=== PATIENT | female | born 1960 | race Caucasian/White ===

== ENCOUNTER 2022-12-25 13:15 | Outpatient (OUT) | payer OTHER, SELFPAY ==
[2022-12-25 13:40] LABS: Estimated GFR (African America >60 (>=60); Estimated GFR (Non-African Ame >60 (>=60)
--- NOTE | 2022-12-25 14:43 | CT_ITS ---
[address] [address] Patient Name: SHANIA JAQUEZ MRN: [id number] date: 1960 Sex: F Assigned Patient Location: LAB Current Patient Location: LAB Accession/Order Number: [id number] Exam Date: 12/25/2022 14:25 Report Date: 12/25/2022 17:37 At the request of: CHARLENE KHAN Procedure: CT angio chest EXAM: CT angio chest HISTORY: Hemoptysis R0.42, R93.89 COMPARISON: Chest radiograph from 10/20/2022 TECHNIQUE: CT chest with intravenous contrast was performed with timing for the evaluation for pulmonary arteries. Multiplanar reformats were performed. MIP (maximum intensity projection) images or 3D post processing was performed. Dose reduction techniques were achieved by using automated exposure control and/or adjustment of mA and/or kV according to patient size and/or use of iterative reconstruction technique. FINDINGS: Lungs: There is a large right pleural effusion with right lower, middle and upper lobe atelectasis and/or consolidation. 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 There is a small left pleural effusion with linear atelectasis of the left upper lobe and lingula. There is bilateral centrilobular emphysema. There is a masslike lesion measuring up to 7.1 x 7.2 cm extending from the right paratracheal to the right perihilar and subcarinal region, likely representing lung mass and conglomerated lymphadenopathy. No suspicious pulmonary nodule is seen in the left lung. Airways: Normal. Mediastinum: There is a 6.1 x 4.8 cm conglomerated lymph nodes which is inseparable from the right perihilar lung mass. There are also bilateral supraclavicular, bilateral perivascular lymph nodes measuring up to 2.1 cm. Aorta: No aneurysm. Cardiac: Normal size. No pericardial effusion. Pulmonary vasculature: Diagnostic opacification of pulmonary arteries without evidence of pulmonary embolus. Normal morphology. Encasement and narrowing of the right main pulmonary artery with severe narrowing of the segmental branch of the right upper lobe due to lymphadenopathy and lung mass. 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 There is severe narrowing/occlusion of the right upper lobe pulmonary veins up to the insertion into the left atrium. There is severe narrowing of the right lower lobe pulmonary veins but patent at the insertion to the left atrium. Bones: No acute bony abnormality. No aggressive bone lesion. Axilla: No adenopathy. Thyroid gland: No abnormality demonstrated on provided imaging. Soft tissues: Bilateral breast implant. Upper abdomen: Unremarkable. Additional findings: None. IMPRESSION: No acute pulmonary embolism. 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 Multiple mediastinal lymphadenopathy as described above. Large right pleural effusion with right lower, middle and upper lobe atelectasis and/or consolidation. 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 Small left pleural effusion with linear atelectasis of the left upper lobe and lingula. Electronically authenticated by: SONYA CHIANG Date: 12/25/2022 17:37
== END 2022-12-25 13:16 ==
LOC: LAB 13:20
PROVIDERS: PCP Family Medicine; Visit Provider Internal Medicine
DX: R04.2 Hemoptysis (principal); R93.89 Abnormal findings on diagnostic imaging of other specified body structures; R91.8 Other nonspecific abnormal finding of lung field; R59.0 Localized enlarged lymph nodes; J90 Pleural effusion, not elsewhere classified
CPT/HCPCS: 36415; 71275; 82565; Q9967

== ENCOUNTER 2022-12-26 11:34 | Outpatient (OUT) | payer OTHER, SELFPAY ==
--- NOTE | 2022-12-26 12:14 | XR_ITS ---
[address] [address] Patient Name: SHANIA JAQUEZ MRN: [id number] date: 1960 Sex: F Assigned Patient Location: [place] Current Patient Location: [place] Accession/Order Number: [id number] Exam Date: 12/26/2022 12:24 Report Date: 12/26/2022 12:44 At the request of: CHARLENE KHAN Procedure: XR chest 1V EXAMINATION: XR chest 1V HISTORY: post thoracentesis COMPARISON: CTA chest 12/25/2022, XR chest 10/20/2022 FINDINGS: LUNGS: Complete opacification of the lower one third of the right hemithorax. Small amount of fluid within the right minor fissure. Left lung is expanded and grossly clear; opacity over the lung bases suspected to be anterior soft tissue artifact. VASCULATURE: No increased pulmonary vasculature. PLEURA: No pneumothorax, effusion, or pleural thickening. CARDIAC: Cannot assess. MEDIASTINUM: No visible mass or adenopathy. BONES: No fracture or visible bone lesion. OTHER: Negative. IMPRESSION: 1. Opacification of lower one third of right hemithorax; residual fluid versus atelectasis. Follow-up to document clearing is recommended. 2. No pneumothorax. Electronically authenticated by: DARRELL HARPER Date: 12/26/2022 12:44
--- NOTE | 2022-12-26 12:30 | PC.NURSE ---
Pt arrived per to complete thoracentesis, completed without difficulty and drained 850ml. Sent specimin to lab, CXR completed stat. Post procedure visited and departed with pt and family to his office. Time out was completed during procedure at 1157. Post procedure HR 97 Spo2 99 room air.
--- NOTE | 2022-12-26 12:55 | W.PM.PROCNOT ---
Date of procedure: 12/26/22 Pre-op diagnosis: Right pleural effusion Post-op diagnosis: same Procedure: Procedure: Ultrasound-guided diagnostic & therapeutic right-sided thoracentesis Summary: Informed consent was obtained after risks, benefits, and alternatives were discussed with the patient. Time out was initiated to confirm the correct patient, site, and procedure with all present voicing in the affirmative. The patient was placed in the seated position in the hospital bed. Ultrasound was utilized to identify the hemidiaphragm and pleural fluid on the right. A very large right pleural effusion was seen. An appropriate drainage site was marked via pen, based on anatomical landmarks and the ultrasound findings. Chloraprep was used to cleanse the lower right hemithorax. Sterile drapes were applied. Lidocaine 1% 10mL was injected, first as superficial skin wheal, and then using aspiration technique, advanced over the superior aspect of the lower rib subcutaneously at the periosteum and then parietal pleura. Easy return of mcgrath pleural fluid was aspirated. Next, a small incision was made to the anesthetized area with the blade provided in the prepackaged thoracentesis kit. Hemostasis was achieved. A kcqrhdsz-ueyk-echwng apparatus was advanced as a unit over the superior aspect of the lower rib into the pleural space with great care to prevent further progression of the needle into the pleural cavity. The needle was then retracted completely and discarded. A vacuum collection system was attached to the catheter and pleural fluid was collected for analysis. A total of 800mL of pleural fluid was removed. The procedure was terminated due to the patient complaining of a funny feeling in her chest. The catheter was then removed during an expiratory breath-hold maneuver. The patient tolerated the procedure well. A post-procedural portable chest x-ray was ordered to assess adequacy of pleural fluid drainage and to evaluate for iatrogenic pneumothorax. The report shows no pneumothorax, but a large amount of right pleural fluid still remains. Anesthesia: Local (Lidocaine 1%, 10mL subcutaneously) Surgeon: Ranjith Dempsey Estimated blood loss (mL): 0
[2022-12-27 11:09] LABS: Amylase, Body Fluid 56 U/L (.); Glucose, Body Fluid 106 mg/dL (.); Protein, Body Fluid 4.7 g/dL (.); Triglycerides, Fluid 30 mg/dL (Not Estab.)
[2022-12-27 15:08] LABS: Clarity, Serous Clear (Clear); Color, Serous Yellow (.); Eosinophils, Serous 0 % (Not Estab.); Lining Cells, Serous 4 % (Not Estab.); Lymphocytes, Serous 70 % (Not Estab.); Macrophages, Serous 20 % (Not Estab.); Neut, Serous 6 % (0-24); Nucleated Cells, Serous 1724 /mm3 (0-499); RBC, Serous 2000 /uL (Not Estab.)
[2022-12-28 16:10] LABS: pH, Body Fluid 7.9 (Not Estab.)
== END 2022-12-26 12:30 ==
LOC: INF 11:36 → MS 11:38
PROVIDERS: PCP Family Medicine; Visit Provider Internal Medicine
DX: J90 Pleural effusion, not elsewhere classified (principal)
CPT/HCPCS: 32555; 36415; 71045; 82150; 82945; 83986; 84478; 87070; 88112; 88305; 88341; 88342; 89051

== ENCOUNTER 2022-12-26 15:09 | Outpatient (OUT) | payer OTHER, SELFPAY | END 2022-12-26 15:10 | disposition home or self-care (01) | PROVIDERS: PCP Family Medicine; Visit Provider Internal Medicine Hematology & Oncology | DX: C34.90 Malignant neoplasm of unspecified part of unspecified bronchus or lung (principal); D38.1 Neoplasm of uncertain behavior of trachea, bronchus and lung; R59.0 Localized enlarged lymph nodes; R06.00 Dyspnea, unspecified; J90 Pleural effusion, not elsewhere classified; D38.3 Neoplasm of uncertain behavior of mediastinum; R91.8 Other nonspecific abnormal finding of lung field | CPT/HCPCS: G0463 ==

== ENCOUNTER 2022-12-28 10:33 | Outpatient (OUT) | payer OTHER, SELFPAY ==
--- NOTE | 2022-12-28 10:38 | MR_ITS ---
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 TECHNIQUE: A variety of imaging planes and parameters were utilized for visualization of suspected pathology. Images were performed without and with Dotarem contrast. FINDINGS: CEREBRUM: No edema, hemorrhage, mass, acute infarction, or inappropriate atrophy. CEREBELLUM: No edema, hemorrhage, mass, acute infarction, or inappropriate atrophy. BRAINSTEM: No edema, hemorrhage, mass, acute infarction, or inappropriate atrophy. CSF SPACES: Ventricles, cisterns, and sulci are appropriate for age. No hydrocephalus, subarachnoid hemorrhage, or mass. SKULL: No mass or other significant visible lesion. SINUSES: Complete opacification of left maxillary sinus. ORBITS: Limited views are unremarkable. OTHER: 12 x 10 x 5 mm nonenhancing nodule versus proteinaceous cyst within subcutaneous fat of posterior right scalp near midline. IMPRESSION: 1. Within posterior right scalp subcutaneous fat is a 12 mm rounded lesion; nonspecific but favoring a sebaceous gland cyst or dermal inclusion cyst. Metastatic disease is felt much less likely. 2. Normal MRI appearance of the brain. No evidence of metastatic disease. 3. Left maxillary marked chronic sinusitis. Electronically authenticated by: DARRELL HARPER Date: 12/28/2022 16:29
== END 2022-12-28 10:34 ==
LOC: MRI 10:34
PROVIDERS: PCP Family Medicine; Visit Provider Internal Medicine Hematology & Oncology
DX: Z01.810 Encounter for preprocedural cardiovascular examination (principal); R91.8 Other nonspecific abnormal finding of lung field; D38.1 Neoplasm of uncertain behavior of trachea, bronchus and lung; C34.90 Malignant neoplasm of unspecified part of unspecified bronchus or lung; R59.0 Localized enlarged lymph nodes; R06.00 Dyspnea, unspecified; J90 Pleural effusion, not elsewhere classified; D38.3 Neoplasm of uncertain behavior of mediastinum; J32.0 Chronic maxillary sinusitis; L98.9 Disorder of the skin and subcutaneous tissue, unspecified
CPT/HCPCS: 70553; 93005; A9575

== ENCOUNTER 2022-12-28 14:28 | Outpatient (OUT) | payer OTHER, SELFPAY ==
--- NOTE | 2022-12-28 14:34 | ECG_ITS ---
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
== END 2022-12-28 14:29 ==
PROVIDERS: PCP Family Medicine
DX: Z01.810 Encounter for preprocedural cardiovascular examination (principal); R91.8 Other nonspecific abnormal finding of lung field
CPT/HCPCS: 93005

== ENCOUNTER 2023-01-01 10:44 | Outpatient (OUT) | payer OTHER, SELFPAY ==
--- NOTE | 2023-01-01 10:00 | NM_ITS ---
[address] [address] Patient Name: SHANIA JAQUEZ MRN: [id number] date: 1960 Sex: F [facility] Accession/Order Number: [id number] Exam Date: 01/01/2023 10:00 Report Date: 01/01/2023 21:32 At the request of: SYDNI ARRIOLA Procedure: [facility] bone scan whole body EXAMINATION: [facility] bone scan whole body HISTORY: LUNG CANCER, EVAL FOR BONE METS COMPARISON: No relevant comparison available. TECHNIQUE: After obtaining the patient's consent, 24.8 mCi Technetium 99m MDP was injected intravenously. Images were obtained approximately two hours later. FINDINGS: ABNORMALITIES: Increased activity right acromioclavicular and bilateral sternoclavicular joints likely degenerative in nature. No additional areas of increased or decreased uptake in the skeletal system OTHER: Negative. IMPRESSION: No evidence of metastatic disease to the bones Electronically authenticated by: SANDRA ZAMORANO Date: 01/01/2023 21:32
== END 2023-01-01 10:45 | disposition home or self-care (01) ==
LOC: NM 10:45
PROVIDERS: PCP Family Medicine; Visit Provider Internal Medicine Hematology & Oncology
DX: R91.8 Other nonspecific abnormal finding of lung field (principal); D38.1 Neoplasm of uncertain behavior of trachea, bronchus and lung; C34.90 Malignant neoplasm of unspecified part of unspecified bronchus or lung; R59.0 Localized enlarged lymph nodes; R06.00 Dyspnea, unspecified; J90 Pleural effusion, not elsewhere classified; D38.3 Neoplasm of uncertain behavior of mediastinum
CPT/HCPCS: 78306; A9503